=== PATIENT | female | born 1965 | race Caucasian/White ===

== ENCOUNTER 2022-07-09 09:51 | Emergency (ER) | payer SELFPAY ==
[2022-07-09] MEDS ORDERED: Ondansetron 4 MG Tab.DIS PO ONE (10:14)
[2022-07-09] MEDS ORDERED: Ketorolac 30 MG/ML SDV IM ONE (10:34)
[2022-07-09] MEDS ORDERED: Loperamide 1 MG/7.5 ML 7.5 ML UD Cup PO ONE (10:39)
[2022-07-09] MEDS ORDERED: HYDROmorphone 2 MG/ML SDV IVPUSH ONE (11:26)
[2022-07-09] MEDS ORDERED: Lactated Ringers 1,000 ML IV ONE (11:26)
[2022-07-09] MEDS ORDERED: cefTRIAXone 500 MG in Sodium Chloride 0.9% 50 ML IV STA (13:53)
== END 2022-07-09 15:10 | disposition home or self-care (01) ==
LOC: FB.ED 09:51
DX: J02.0 Streptococcal pharyngitis (principal); Z88.1 Allergy status to other antibiotic agents; Z88.8 Allergy status to other drugs, medicaments and biological substances; Z79.899 Other long term (current) drug therapy; Z20.822 Contact with and (suspected) exposure to COVID-19
CPT/HCPCS: 36415; 85025; 87635; 87651; 96361; 96365; 96372; 96375; 99284; A9270; J0696; J1170; J1885; J3490; J7120; Q0162; U0002